=== PATIENT | female | born 1945 | race Caucasian/White ===

== ENCOUNTER → 2018-10-11 | Outpatient (CLI) | payer MEDICARE ==
--- NOTE | 2018-10-12 08:51 | RADIOLOGY REPORT (SQ) ---
EXAM DESCRIPTION: MRI RT UPPER JOINT WITHOUT COMPLETED DATE/TIME: 10/11/2018 10:09 am REASON FOR STUDY: BURSITIS OF RIGHT SHOULDER M75.51 M75.51 BURSITIS OF RIGHT SHOULDER COMPARISON: None. TECHNIQUE: Right shoulder images acquired and stored on PACS. Multiplanar imaging to include fat sen sitive sequences such as T1, water sensitive sequences such as FST2/STIR, cartilage sensitive sequenc es such as FSPD/gradient-echo sequences. LIMITATIONS: Mild motion artifact on many of the sequences. FINDINGS: BONE MARROW AND CORTEX: No worrisome bone lesions or marrow replacement. No occult fractur es. JOINT OR BURSAL EFFUSION: No significant effusion. Mild subacromial subdeltoid bursitis. Slightly l oculated bursal fluid, subcoracoid. GLENO-HUMERAL ARTICULATION: No large subchondral cysts. No overt subluxation or dislocation. ACROMION AND AC JOINT: Mild-moderate hypertrophic overgrowth. ROTATOR CUFF AND INTERVAL: Full-thickness partial width cuff tear at insertion along the supraspinatu s. Infraspinatus tendinosis. Suspect atrophy in the supraspinatus muscle with loss of volume. Mild fatty atrophy in the infraspinatus. LABRUM AND BICEPS LABRAL COMPLEX: Poorly assessed superior labrum and biceps tendon. No gross jonathan ps disruption. REMAINDER OF LABRUM AND IGHL : Suboptimally assessed. No gross displaced tear or paralabral cyst. PERIARTICULAR AND ADJACENT SOFT TISSUES: No masses or abnormal nodes. OTHER: No other significant finding. IMPRESSION: 1. Full-thickness partial width supraspinatus insertion tear with atrophy. TECHNICAL DOCUMENTATION: JOB ID: [id number] [employer]- All Rights Reserved Reading location - IP/workstation name: [email or web address]
== END ==
LOC: RAD 09:30
PROVIDERS: ATTEND Orthopaedic Surgery
DX: M75.51 Bursitis of right shoulder (principal)